=== PATIENT | male | born 1975 | race Caucasian/White ===

== ENCOUNTER 2021-12-25 02:03 | Emergency (ER) | payer OTHER ==
[2021-12-25] MEDS ORDERED: IBUPROFEN600 MG PO (05:22)
[2021-12-25] MEDS ORDERED: CYCLOBENZAPRINE10 MG PO (05:22)
== END 2021-12-25 05:30 | disposition home or self-care (01) ==
LOC: ER1 02:03
DX: M54.50 Low back pain, unspecified (principal); V43.52XA Car driver injured in collision with other type car in traffic accident, initial encounter; Y92.410 Unspecified street and highway as the place of occurrence of the external cause
CPT/HCPCS: 71045; 72131; 99284